=== PATIENT | female | born 1960 | race Caucasian/White ===

== ENCOUNTER 2023-11-08 05:47 | Inpatient (IN) | payer OTHER ==
[2023-11-08] MEDS ORDERED: ALPRAZolam 0.25 MG TAB PO PRN (06:14)
[2023-11-08] MEDS ORDERED: ZOLPIDEM 5 MG TAB PO PRN (06:14)
[2023-11-08 06:44] LABS: Glucose,Whole Blood 90 mg/dL (70-110)
[2023-11-08] MEDS: IV FLUID CONTINUATION 1,000 ML IV ONE (06:45)
[2023-11-08] MEDS: SODIUM CHLORIDE 0.9% 1,000 ML in EMPTY BAG 1 BAG IV ONE (06:45)
[2023-11-08 06:49] LABS: Basophils # (A) 0.1 k/uL (0-0.2); Basophils % (A) 1 %; Eosinophils # (A) 0.4 k/uL (0-0.7); Eosinophils % (A) 5 %; HCT 47.4 % (34.0-46.0); HGB 15.8 gm/dL (11.4-16.0); Lymphocytes # (A) 1.9 k/uL (1.0-4.8); Lymphocytes % (A) 22 %; MCH 30.6 pg (25.0-35.0); MCHC 33.4 g/dL (31.0-37.0); MCV 91.6 fL (80.0-100.0); Mean Platelet Volume 6.2; Monocytes # (A) 0.5 k/uL (0-1.0); Monocytes % (A) 6 %; Neutrophils # (A) 5.8 k/uL (1.3-7.7); Neutrophils % (A) 66 %; Platelet Count 449 k/uL (150-450); RBC 5.18 m/uL (3.80-5.40); RDW 12.9 % (11.5-15.5); WBC 8.8 k/uL (3.8-10.6)
[2023-11-08] MEDS ORDERED: HYDROmorphone 0.5 MG/0.5 ML SYRINGE IVP PRN (07:00)
[2023-11-08 07:01] LABS: African American GFR (CKD) >90 (>60 ml/min/1.73 sqM); Anion Gap 0 mmol/L; Blood Urea Nitrogen 10 mg/dL (7-17); Calcium 8.9 mg/dL (8.4-10.2); Carbon Dioxide 33 mmol/L (22-30); Chloride 96 mmol/L (98-107); Glucose 89 mg/dL (74-99); Non-African American GFR(CKD) >90 (>60 ml/min/1.73 sqM); Sodium 129 mmol/L (137-145)
[2023-11-08] MEDS ORDERED: ROCURONIUM 10 MG/ML (5 ML VIAL) IV ONE (07:37)
[2023-11-08] MEDS ORDERED: fentaNYL (PF) 50 MCG/ML 2 ML AMP ONE (07:37)
[2023-11-08] MEDS ORDERED: PROTAMINE SULFATE 10 MG/ML 5 ML VIAL ONE (07:37)
[2023-11-08] MEDS ORDERED: ceFAZolin 1 GM/50 ML BAG (PMX) ONE (07:37)
[2023-11-08] MEDS ORDERED: PROPOFOL 10 MG/ML 20 ML VIAL IV ONE (07:37)
[2023-11-08] MEDS ORDERED: LIDOCAINE 1% INJ 10MG/ML (20 ML MDV) ONE (07:37)
[2023-11-08] MEDS ORDERED: GLYCOPYRROLATE 0.2 MG/ML 2 ML VIAL ONE (07:37)
[2023-11-08] MEDS ORDERED: KETAMINE HCL IN 0.9 % NACL 50 MG/5 ML SYRINGE ONE (07:37)
[2023-11-08] MEDS ORDERED: NEOSTIGMINE 1 MG/ML 10 ML VIAL ONE (07:37)
[2023-11-08] MEDS ORDERED: MIDAZOLAM 2 MG/2 ML VIAL ONE (07:37)
[2023-11-08] MEDS ORDERED: SUCCINYLCHOLINE CHLORIDE 200 MG/10 ML VIAL IV ONE (07:37)
[2023-11-08] MEDS ORDERED: PHENYLEPHRINE 10 MG/ML VIAL ONE (07:37)
[2023-11-08] MEDS ORDERED: HEPARIN SODIUM,PORCINE 5,000 UNIT/ML 1 ML VIAL ONE (07:37)
[2023-11-08] MEDS: ALBUTEROL NEBULIZED 2.5 MG/3 ML INHALATION STA (07:40)
[2023-11-08] MEDS: IOPAMIDOL-370 100ML BTL INJ ONE ×2 (09:03→10:16)
[2023-11-08] MEDS: HEPARIN SODIUM,PORCINE (1 ML) 2,500 UNIT in SODIUM CHLORIDE 0.9% 250 ML IRRIGATION ONE (10:17)
[2023-11-08] MEDS: HEPARIN SODIUM,PORCINE 10,000 UNIT in SODIUM CHLORIDE 0.9% 1,000 ML IRRIGATION ONE (10:17)
--- NOTE | 2023-11-08 10:51 | P.OP ---
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 Postoperative Diagnosis: Same Right SFA occlusion at the takeoff Procedure(s) Performed: Ultrasound guided right femoral artery access Aortogram with selective left lower extremity angiogram 3rd order Percutaneous atherectomy with Hawk One 6M device of the SFA occlusion Percutaneous transluminal balloon angioplasty of the left SFA Ultrasound guided left common femoral artery access Percutaneous transluminal balloon angioplasty of the aorta with Shockwave 8mm x 30mm balloon Percutaneous transluminal cover stenting with 11mm x 39mm VBX Percutaneous closure of the left common femoral artery access with Vascade device Percutaneous closure of the right common femoral artery with Perclose x 1 Anesthesia: GETA Surgeon: Crispin Bliss Estimated Blood Loss (ml): 20 Pathology: none sent Condition: stable Disposition: PACU Indications for Procedure: 63 year old female with history of chronic left toe wound with previous angiog bill, CTA of the abdomen, pelvis and left lower extremity which demonstrated chronic total occlusion of the left SFA and distal aorta. She presents today for left lower extremity atherectomy, revascularization and aortic intervention possible AFX stenting. Operative Findings: distal aortic occlusive disease greater than 95% Left SFA chronic total occlusion with reconstitution at the distal SFA Right SFA occlusion at the takeoff with reconstitution at the mid thigh Small, diminutive vessels throughout. Description of Procedure: After written and informed consent was obtained the patient all risks, benefits and complications were described patient is brought to the Mechanical Cad Designer and laid supine position. The area of the right and left groin was prepped and draped in usual sterile fashion. Timeout was performed in normal fashion. Utilizing ultrasound the right femoral artery was accessed and a 6 F sheath was placed. Iliac and aortic angiogram was then obtained which demonstrated severe occlusive disease of the distal aorta but bifurcation was patent. 035 Glidewire was then placed into the aorta followed by an RBI catheter and the left iliac was accessed in an up and over fashion. Selective angiogram was then obtained of the left lower extremity demonstrating occlusion of the SFA at the mid thigh and reconstitution roughly 100mm distal. Patient was given heparin and followed with ACTs. An 035 Glidewire advantage was then placed in an up and over fashion and the 6 F short sheath was removed and replaced with an up and over 6F sheath. Selective angiogram was again obtained demonstrating occlusion/stenosis of the left SFA. Utilizing 035 Glidewire and quick cross catheter the lesion was crossed and selective angiogram distally was obtained demonstrating good intraluminal access. Once across a 5mm spider filter was placed and utilizing a 6M Hawk one atherectomy device directional atherectomy was performed with mult iple passes. Once completed angiogram was obtained demonstrating improvement of the stenotic area. Balloon angioplasty was then performed with a [id number]. Final angiogram demonstrated brisk flow with resolution of the occlusion. Attention was then placed to the aortic lesion. Using the crossing catheter and 035 wire the aortic lesion was crossed and aortogram was obtained demonstrating good intraluminal access. Ultrasound was then used to access the left femoral artery and a 7F sheath was placed in usual fashion in order to place the AFX graft. Using a crossing catheter the aortic lesion was crossed from the left access and aortogram was obtained demonstrating good intraluminal access. The wire was then changed for an 018 glidewire advantage and balloon angioplasty was performed with a Shockwave 8mm x 30mm balloon x 4 pulses. Once completed angiogram demonstrated improved lumen and good landing zone for within the aorta at the proximal and distal aspect. A VBX 11mm x 39mm stent was then chosen and deployed in usual fashion after the right common femoral sheath was upsized to an 8F sheath. Once completed all guidewires and catheters were then removed the sheath was removed on the left utilizing a Vascade closure device the access was closed. Final angiogram demonstrated brisk flow to the left lower extremity. A Perclose was then placed on the right and pressure was placed for hemostasis. Once completed the right femoral pulse was diminished and therefore ultrasound used to view the artery which demonstrated poor flow to the SFA. Due to the decrease flow the left femoral artery was accessed under ultrasound and a 5F sheath was placed in usual fashion and a wire was placed followed by the RBI catheter and an angiogram was performed of the right lower extremity. The common femoral artery and profunda were patent without any stenosis but the SFA was occluded distal to the access which appeared chronic with reconstitution noted at the mid thigh. There was 2 vessel takeoff at the TPT with runoff to the ankle. All guidewires, catheter and sheath was removed and pressure held for hemostasis. The patient tolerated the procedure well and had palpable femo ral pulses bilaterally pulses and DP/PT pulses on the left and was sent to recovery.
--- NOTE | 2023-11-08 11:03 | P.ANPRN ---
Procedure Note - Anesthesia - Invasive Line Left Arterial Line Time Out Performed: Yes (0721) Date of Procedure: 11/08/23 Time of Procedure: 07:22 Location of Patient: PreOp Preparation: Sterile Prep, Sterile Dressing Arterial Line Location: Radial (left) Ultrasound Used: No Purpose - Visualization and Identification of Vasculature: No Image Stored and Saved: No Narrative: Invasive line placement per sterile protocol utilized.
[2023-11-08] MEDS ORDERED: DEXTROSE 50% SYRINGE 50 ML IVP PRN ×2 (11:21)
[2023-11-08] MEDS ORDERED: ACETAMINOPHEN TAB 325 MG TAB PO PRN (11:24)
[2023-11-08] MEDS ORDERED: ONDANSETRON 4 MG/2 ML VIAL IVP PRN (11:24)
[2023-11-08] MEDS: ONDANSETRON 4 MG/2 ML VIAL IVP ONE (12:58)
[2023-11-08] MEDS: DEXAMETHASONE SOD PHOSPHATE 4 MG/ML 1 ML VIAL IV ONE (12:58)
[2023-11-08] MEDS: LACTATED RINGERS 1,000 ML IV SCH (13:00)
[2023-11-08] MEDS: INSULIN ASPART (NovoLOG) 100 UNIT/ML VIAL SQ SCH (13:01)
[2023-11-08] MEDS: PANTOPRAZOLE 40 MG/10 ML VIAL IVP SCH (13:03)
[2023-11-08 13:07] LABS: Glucose,Whole Blood 93 mg/dL (70-110)
--- NOTE | 2023-11-08 13:07 | IR ---
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 Fluoroscopy was provided to the referring clinician. [facility], , 11/08/2023 1:04 PM
[2023-11-08] MEDS: amLODIPine 10 MG TAB PO SCH (13:13)
[2023-11-08] MEDS ORDERED: hydrALAZINE HCL 20 MG/ML 1 ML VIAL IVP PRN (13:29)
--- NOTE | 2023-11-08 14:49 | P.PN ---
Progress Note - Text Progress Note Date: 11/08/23 This is a 63-year-old female on day of percutaneous revascularization of the left lower extremity. Was doing a postop check when the nurse had concerns that the patient's right foot was cool to the touch compared to the lef and she is unable to obtain a DP or PT signal. Patient is evaluated she denies any pain to the right lower extremity, her sensorimotor is intact with good movement and flexing of the ankle and wiggling of the toes. Bilateral femoral access sites with dressing clean dry and intact. No palpable hematoma or noted ecchymosis. Right foot cool to the touch, adequate capillary refill, nonpalpable PT or DP pulse. Was able to obtain PT Doppler signal. Left lower extremity warm to the touch, palpable PT and DP pulse. Findings discussed with Dr. Bliss. Will start patient on heparin drip without bolus. Continue to monitor femoral access sites. Nursing notified. The impression and plan of care has been dictated as directed. Dr. Fan: Patient seen and examined during postoperative check later in the evening. Her left foot is warm, palpable pedal pulses. Right lower extremity mildly cooler. Motor or sensory intact. Given clinical appearance at this time likely all chronic findings now with improvement of flow to the left side. Doubt acute changes in right lower extremity. Will continue to monitor for need for further interventions however at this time no indication.
[2023-11-08] MEDS: HEPARIN SOD,PORK IN 0.45% NACL 25,000 UNIT in 0.45% NACL 1 250ML.BAG IV SCH (15:31)
[2023-11-08 15:41] LABS: Basophils % (A) 0 %; Eosinophils # (A) 0.3 k/uL (0-0.7); Eosinophils % (A) 2 %; HCT 46.2 % (34.0-46.0); HGB 14.9 gm/dL (11.4-16.0); Lymphocytes # (A) 1.7 k/uL (1.0-4.8); Lymphocytes % (A) 16 %; MCH 29.9 pg (25.0-35.0); MCHC 32.3 g/dL (31.0-37.0); MCV 92.6 fL (80.0-100.0); Mean Platelet Volume 6.4; Monocytes # (A) 0.6 k/uL (0-1.0); Monocytes % (A) 5 %; Neutrophils % (A) 75 %; Platelet Count 349 k/uL (150-450); RBC 4.99 m/uL (3.80-5.40); WBC 10.6 k/uL (3.8-10.6)
[2023-11-08 16:38] LABS: INR 0.9 (<1.2); Partial Thromboplastin Time 24.9 sec (22.0-30.0); Prothrombin Time 10.5 sec (10.0-12.5)
[2023-11-08 16:48] LABS: Glucose,Whole Blood 95 mg/dL (70-110)
[2023-11-08] MEDS: LOSARTAN 50 MG TAB PO SCH (20:07)
[2023-11-08 20:16] LABS: Glucose,Whole Blood 192 mg/dL (70-110)
[2023-11-08] MEDS ORDERED: amLODIPine 10 MG TAB PO SCH (21:00)
[2023-11-08] MEDS ORDERED: HEPARIN SODIUM,PORCINE 5,000 UNIT/ML 1 ML VIAL SQ SCH (21:00)
[2023-11-08] MEDS: HEPARIN SODIUM 1,000 UN/ML (10ML VL) IV PRN (22:12)
[2023-11-09 06:20] LABS: Glucose,Whole Blood 167 mg/dL (70-110)
[2023-11-09 07:51] LABS: Basophils % (A) 0 %; Eosinophils # (A) 0.4 k/uL (0-0.7); Eosinophils % (A) 3 %; HCT 41.4 % (34.0-46.0); HGB 13.8 gm/dL (11.4-16.0); Lymphocytes # (A) 1.7 k/uL (1.0-4.8); Lymphocytes % (A) 15 %; MCH 30.5 pg (25.0-35.0); MCHC 33.2 g/dL (31.0-37.0); MCV 91.9 fL (80.0-100.0); Mean Platelet Volume 7.2; Monocytes # (A) 0.5 k/uL (0-1.0); Monocytes % (A) 5 %; Neutrophils % (A) 76 %; Platelet Count 355 k/uL (150-450); RBC 4.51 m/uL (3.80-5.40); RDW 12.9 % (11.5-15.5); WBC 11.8 k/uL (3.8-10.6)
[2023-11-09] MEDS: DULoxetine HCL 30 MG CAPSULE.DR PO SCH (08:19)
[2023-11-09] MEDS: CLOPIDOGREL 75 MG TAB PO SCH (08:19)
[2023-11-09] MEDS: ASPIRIN 81 MG PO SCH (08:19)
[2023-11-09] MEDS: NICOTINE 14MG/24HR PATCH TRANSDERM SCH (08:20)
[2023-11-09 09:12] VITALS: RESP 20
--- NOTE | 2023-11-09 09:46 | P.DS ---
Providers Date of admission: 11/08/23 05:47 Expected date of discharge: 11/09/23 Attending physician: Crispin Bliss DO Consults: 11/08/23 06:14 Consult to Anesthesia Routine Consulting Provider: Anesthesia,Services Consult Reason/Comments: General anesthesia for Aortic Stent procedure 11/08/23 10:52 Consult Physician Routine Consulting Provider: Willie Sandhu Consult Reason/Comments: Medical Management Do you want consulting provider notified?: Yes Primary care physician: Juan Ingram Eleanor Slater Hospital Course: 63-year-old female history of chronic left toe wound with previous angiogram, CTA of the abdomen and pelvis and lower extremity which demonstrated chronic total occlusion of the left SFA and distal aorta. She is postop day #1 for percutaneous atherectomy of SFA occlusion, transluminal balloon angioplasty of the left SFA, percutaneous transluminal balloon angioplasty of the aorta with percutaneous transluminal stenting. Yesterday afternoon following her procedure it was noticed that her right foot had been cool to the touch and unable to get Doppler signal. PT signal was obtained she was started on a heparin drip. No pain in the right lower extremity, sensorimotor intact. Reevaluated today the right foot is warm, faint DP and PT signal obtained. Denies any pain to the right or left lower extremity. She has been up ambulating in her room and voiding without difficulty. No shortness of breath, chest pain, abdominal pain, nausea or vomiting. Tolerating her breakfast. Exam General appearance: The patient is alert, oriented, appears in no acute distress. HET: Head is normocephalic and atraumatic. Pupils are equal and reactive. Neck: Supple. Heart: Regular. Lungs: Equal expansion, normal respiratory effort. Abdomen: Soft, nontender, nondistended. Extremities: Normal skin color and turgor. Bilateral groins access site with dressing clean dry and intact, soft with no evidence of hematoma, minimal bruising. Palpable femoral pulses. Bilateral lower extremities warm to the touch. Left palpable PT and DP pulse. Right with faint PT and DP Doppler signal. Sensorimotor intact bilaterally. Neurological: No focal deficits. Strength and sensation are grossly intact. Assessment 1. Postop day #1 for aortogram with selective left lower extremity angiogram with percutaneous atherectomy of SFA occlusion, transluminal balloon angioplasty of left SFA, balloon angioplasty of aorta with stent. 2. Left SFA chronic total occlusion, resolved 3. Critical limb ischemia with chronic left toe wound 4. Distal aortic occlusive disease 5. Right SFA occlusion at the takeoff 6. Nicotine dependence Plan 1. Encourage ambulation 2. Will discontinue heparin drip and start Xarelto 2.5 mg twice daily 3. Continue Plavix 75 mg daily, discontinue aspirin 4. Recommend smoking cessation. Continue nicotine patches 5. Discharge instructions and medications reviewed with patient, patient verbalizes understanding 6. Patient to follow-up with Dr. Bartlett for left great toe wound care 7. Patient is cleared for discharge, follow-up with Dr. Bliss in 2 weeks The impression and plan of care has been dictated as directed. I performed a history and examination of this patient, discussed the same with the dictator. I agree with the dictator's note ,documented as a scribe. Any additional findings or plans will be noted. Procedures: Procedure(s) Performed: Ultrasound guided right femoral artery access Aortogram with selective left lower extremity angiogram 3rd order Percutaneous atherectomy with Hawk One 6M device of the SFA occlusion Percutaneous transluminal balloon angioplasty of the left SFA Ultrasound guided left common femoral artery access Percutaneous transluminal balloon angioplasty of the aorta with Shockwave 8mm x 30mm balloon Percutaneous transluminal cover stenting with 11mm x 39mm VBX Percutaneous closure of the left common femoral artery access with Vascade device Percutaneous closure of the right common femoral artery with Perclose x 1 Patient Condition at Discharge: Stable Plan - Discharge Summary Discharge Rx Participant: No New Discharge Prescriptions: New Clopidogrel [Plavix] 75 mg PO DAILY #30 tab Acetaminophen Tab [Tylenol] 650 mg PO Q6HR PRN tab PRN Reason: Fever And/ Or Pain Nicotine 14Mg/24Hr Patch [Habitrol] 1 patch TRANSDERM DAILY #30 patch Rivaroxaban [Xarelto] 2.5 mg PO BID #60 tab Continue Atorvastatin [Lipitor] 20 mg PO QAM Gabapentin [Neurontin] 100 mg PO TID INSULIN LISPRO (humaLOG) [humaLOG] 0 units SQ ACHS Magnesium (Unknown Dose) 400 mg PO QAM Vitamin D(Unknown Dose) 1 dose PO QAM Famotidine 20 mg PO 1600 amLODIPine [Norvasc] 10 mg PO BID Losartan [Cozaar] 100 mg PO HS metFORMIN HCL [Glucophage] 1,000 mg PO BID DULoxetine HCL [Cymbalta] 30 mg PO QAM Augmentin(Unknown Dose) 1 dose PO BID Discontinued Aspirin EC [Ecotrin Low Dose] 81 mg PO QAM Discharge Medication List Atorvastatin [Lipitor] 20 mg PO QAM 11/02/23 [History] Augmentin(Unknown Dose) 1 dose PO BID 11/02/23 [History] DULoxetine HCL [Cymbalta] 30 mg PO QAM 11/02/23 [History] Famotidine 20 mg PO 1600 11/02/23 [History] Gabapentin [Neurontin] 100 mg PO TID 11/02/23 [History] INSULIN LISPRO (humaLOG) [humaLOG] 0 units SQ ACHS 11/02/23 [History] Losartan [Cozaar] 100 mg PO HS 11/02/23 [History] Magnesium (Unknown Dose) 400 mg PO QAM 11/02/23 [History] Vitamin D(Unknown Dose) 1 dose PO QAM 11/02/23 [History] amLODIPine [Norvasc] 10 mg PO BID 11/02/23 [History] metFORMIN HCL [Glucophage] 1,000 mg PO BID 11/02/23 [History] Acetaminophen Tab [Tylenol] 650 mg PO Q6HR PRN tab 11/09/23 [Rx] Clopidogrel [Plavix] 75 mg PO DAILY #30 tab 11/09/23 [Rx] Nicotine 14Mg/24Hr Patch [Habitrol] 1 patch TRANSDERM DAILY #30 patch 11/09/23 [Rx] Rivaroxaban [Xarelto] 2.5 mg PO BID #60 tab 11/09/23 [Rx] Follow up Appointment(s)/Referral(s): Crispin Bliss DO [STAFF PHYSICIAN] - 2 Weeks Patient Instructions/Handouts: Atherectomy (DC), Peripheral Vascular Angioplasty (DC), Peripheral Vascular Stent Placement (DC), Clopidogrel (By mouth), Rivaroxaban (By mouth) Activity/Diet/Wound Care/Special Instructions: No driving for two days. Avoid heavy lifting greater than 10 lbs , pushing, pulling, straining, flights of stairs for three days. ok to shower tomorrow but no baths, pools, soaking in tubs to avoid risk of infection. signs of infection ie: fever, rash, drainage from puncture site, swelling contact doctor or return to ER immediately. Heavy bleeding from puncture site apply firm direct pressure and return to ER. Do not attempt to drive self. low sodium/low fat diet Recommend smoking cessation. Nicotine patches prescribed. Discharge Disposition: HOME SELF-CARE
[2023-11-09 10:08] LABS: African American GFR (CKD) >90 (>60 ml/min/1.73 sqM); Anion Gap 2 mmol/L; Blood Urea Nitrogen 5 mg/dL (7-17); Calcium 8.7 mg/dL (8.4-10.2); Carbon Dioxide 25 mmol/L (22-30); Chloride 105 mmol/L (98-107); Glucose 144 mg/dL (74-99); Non-African American GFR(CKD) >90 (>60 ml/min/1.73 sqM); Sodium 132 mmol/L (137-145)
[2023-11-09] MEDS: RIVAROXABAN 2.5 MG TABLET PO SCH (10:28)
[2023-11-09 11:23] LABS: Glucose,Whole Blood 185 mg/dL (70-110)
[2023-11-09 11:48] VITALS: BP 132/69; PULSE 78; TEMP 98.4
--- NOTE | 2023-11-09 13:07 | P.PN ---
Subjective Progress Note Date: 11/09/23 Is a 63-year-old female who underwent angiogram and repair of occluded left SFA secondary to critical limb ischemia of the left leg. Patient has been started on Xarelto and will continue this on discharge. She is evaluated today postoperative day #1 she is not having much pain to her left leg has been up ambulating without difficulty. No acute events overnight. Today reveals a white blood cell count of 11.8, sodium level of 132, BUN of 5, creatinine of 0.40, hemoglobin A1c of 6.7. Hemodynamically she is stable and she is cleared medically for discharge home. Review of Systems Constitutional: Denied any fatigue denied any fever. Cardio vascular: denied any chest pain, palpitations Gastrointestinal: denied any nausea, vomiting, diarrhea Pulmonary: Denied any shortness of breath cough Neurologic denied any new focal deficits All inpatient medications were reviewed and appropriate changes in these medications as dictated in the interval history and assessment and plan. PHYSICAL EXAMINATION: GENERAL: The patient is alert and oriented x3, not in any acute distress. Well developed, well nourished. HEENT: Pupils are round and equally reacting to light. EOMI. No scleral icterus. No conjunctival pallor. Normocephalic, atraumatic. No pharyngeal erythema. No thyromegaly. CARDIOVASCULAR: S1 and S2 present. No murmurs, rubs, or gallops. PULMONARY: Chest is clear to auscultation, no wheezing or crackles. ABDOMEN: Soft, nontender, nondistended, normoactive bowel sounds. No palpable o rganomegaly. MUSCULOSKELETAL: No joint swelling or deformity. EXTREMITIES: No cyanosis, clubbing, or pedal edema. NEUROLOGICAL: Gross neurological examination did not reveal any focal deficits. SKIN: No rashes. Assessment and plan Critical limb ischemia and left chronic SFA occlusion; now postoperative left SFA percutaneous arthrectomy; transluminal balloon angioplasty of left SFA and balloon agioplasty of aorta with stent. Right SFA occlusion at take off Diabetes Mellitus type 2 Hypertension Hyperlipidemia Bronchitis recently treated with augmentin outpatient basis Chronic nicotine dependence Hyponatremia hypovolemic improved with IV fluids. Patient was recently ill with decreased oral intake during that time. GI prophylaxis DVT prophylaxis Full Code Plan Patient will discharge on Plavix and Xarelto therapy for the critical limb ischemia, occlusion and stenting Aspirin 81 mg daily has been discontinued Patient is counseled on the importance of smoking cessation Continue all other same home medications Follow up with Dr Bliss in the office as recommended Follow up with PCP Dr Juan Mandujano Repeat labs in 2 to 3 days monitor sodium level. Medically stable for DC home The impression and plan of care has been dictated by Destiny Gomes, Nurse Practitioner as directed. Dr. Abdon MD I have performed a history and physical examination and medical decision making of this patient, discussed the same with the dictator, and agree with the dictators assessment and plan as written, documented as a scribe. Based on total visit time, I have performed more than 50% of this visit. Objective - Vital Signs Vital signs: Vital Signs Temp 98.1 F 11/09/23 08:00 Pulse 83 11/09/23 08:00 Resp 20 11/09/23 08:00 BP 158/67 11/09/23 08:00 Pulse Ox 96 11/09/23 08:00 FiO2 Intake & Output 11/08/23 11/09/23 11/09/23 18:59 06:59 18:59 Intake Total 1178.72 764.721 180 Output Total 3300 900 Balance 1178.72 -2535.279 -720 Weight 55.1 kg Intake: IV 500 Intake, IV Titration 438.72 64.721 Amount Heparin Sod,Pork in 0.45% 38.72 64.721 NaCl 25,000 unit In 0.45 % NaCl 1 250ml.bag @ 18 UNITS/KG/HR 9.684 mls/hr IV .Q24H SHERRELL Rx#: [id number] Lactated Ringers 1,000 ml 400 @ 50 mls/hr IV .Q20H SHERRELL Rx#:[id number] Oral 240 700 180 Output: Urine 3300 900 Other: Voiding Method Indwelling Catheter Indwelling Catheter - Labs CBC & Chem 7: 11/09/23 07:19 11/09/23 07:19 Labs: Abnormal Lab Results - Last 24 Hours (Table) 11/08/23 11/08/23 11/08/23 Range/Units 03:34 06:30 20:14 WBC (3.8-10.6) k/uL Hct 46.2 H 47.4 H (34.0-46.0) % Neutrophils # 8.0 H (1.3-7.7) k/uL APTT (22.0-30.0) sec POC Glucose (mg/dL) 192 H (70-110) mg/dL 11/08/23 11/09/23 11/09/23 Range/Units 21:32 06:18 07:19 WBC 11.8 H (3.8-10.6) k/uL Hct (34.0-46.0) % Neutrophils # 9.0 H (1.3-7.7) k/uL APTT 35.7 H (22.0-30.0) sec POC Glucose (mg/dL) 167 H (70-110) mg/dL 11/09/23 Range/Units 07:19 WBC (3.8-10.6) k/uL Hct (34.0-46.0) % Neutrophils # (1.3-7.7) k/uL APTT 45.6 H (22.0-30.0) sec POC Glucose (mg/dL) (70-110) mg/dL Assessment and Plan Time with Patient: Less than 30
[2023-11-09 14:45] VITALS: BMI 20.8
--- NOTE | 2023-11-09 14:50 | CONS ---
CONSULTATION REASON FOR CONSULTATION: Advice regarding diabetes mellitus, hypertension, other medical issues, requested by Surgery. HISTORY OF PRESENT ILLNESS: This is a 63-year-old woman with a past medical history of diabetes mellitus, hypertension, hyperlipidemia, underwent percutaneous atherectomy and as well as left SFA angioplasty. There is no history of any fever, rigors, or chills. No history of headache, loss of consciousness, or seizures. PAST MEDICAL HISTORY: History of diabetes mellitus, hypertension, hyperlipidemia. Rest of the history and rest of the chart is also reviewed. HOME MEDICATIONS: Reviewed include insulin. ALLERGIES: None. FAMILY HISTORY: Uterine cancer. SOCIAL HISTORY: Smoking. REVIEW OF SYSTEMS: Fourteen-point review is negative except as mentioned PHYSICAL EXAMINATION: VITAL SIGNS: Pulse is 64, blood pressure 156/61, respirations 14. HEENT: Conjunctivae normal. NECK: No JVD. CARDIOVASCULAR: S1, S2. RESPIRATIONS: Breath sounds diminished at the bases. ABDOMEN: Soft, nontender. LEGS: Status post surgery. NERVOUS SYSTEM: Nonfocal. LABORATORY DATA: Sodium 139. Rest of the labs are noted. ASSESSMENT: 1. Status post balloon angioplasty of the left SFA for chronic left SFA occlusion. 2. Hyponatremia. 3. Diabetes mellitus, type 2. 4. Hypertension. 5. Hyperlipidemia. RECOMMENDATIONS AND DISCUSSION: This is a 63-year-old woman, who presented with multiple complex medical issues, we will monitor the patient closely on the home medications. Monitor blood pressure closely, IV fluids and I would also recommend to monitor blood sugars closely and we will follow the patient closely. DVT prophylaxis. Smoking cessation. Further recommendations to follow. MMODL / IJN: [id number] /
[2023-11-09] MEDS ORDERED: PANTOPRAZOLE 40 MG TABLET PO SCH (21:00)
== END 2023-11-09 15:17 | disposition home or self-care (01) | DRG 182 ==
LOC: 2ORMAIN 05:47 → 3SCARD 09:53
PROVIDERS: ADMIT Surgery; ATTEND Surgery
PROC: 04CL3ZZ Extirpation of Matter from Left Femoral Artery, Percutaneous Approach (ICD-10-PCS; 2023-11-08)
PROC: 047K34Z Dilation of Right Femoral Artery with Drug-eluting Intraluminal Device, Percutaneous Approach (ICD-10-PCS; 2023-11-08)
PROC: 04703ZZ Dilation of Abdominal Aorta, Percutaneous Approach (ICD-10-PCS; principal; 2023-11-08 07:30)
PROC: B41D1ZZ Fluoroscopy of Aorta and Bilateral Lower Extremity Arteries using Low Osmolar Contrast (ICD-10-PCS; 2023-11-08 07:30)
DX: I70.0 Atherosclerosis of aorta (principal); I70.223 Atherosclerosis of native arteries of extremities with rest pain, bilateral legs; I70.92 Chronic total occlusion of artery of the extremities; E11.51 Type 2 diabetes mellitus with diabetic peripheral angiopathy without gangrene; Z79.4 Long term (current) use of insulin; E87.1 Hypo-osmolality and hyponatremia; I10 Essential (primary) hypertension; F17.210 Nicotine dependence, cigarettes, uncomplicated; E78.5 Hyperlipidemia, unspecified; E86.1 Hypovolemia; Z79.84 Long term (current) use of oral hypoglycemic drugs; Z79.899 Other long term (current) drug therapy
CPT/HCPCS: 37225; 80048; 83036; 85025; 85610; 85730; 86850; 86900; 86901; 94640

== ENCOUNTER 2024-04-19 06:59 | Day surgery (SDC) | payer OTHER ==
[2024-04-17 12:53] VITALS: BMI 20.4
[~2024-04-19 06:59] MED LIST: DEXAMETHASONE SOD PHOSPHATE 4 MG/ML 1 ML VIAL IV ONE; ONDANSETRON 4 MG/2 ML VIAL IVP ONE; SCOPOLAMINE 1 MG/72 HR PATCH TRANSDERM ONE
[2024-04-19] MEDS ORDERED: HYDROmorphone 0.5 MG/0.5 ML SYRINGE IVP PRN (07:00)
[2024-04-19] MEDS ORDERED: MIDAZOLAM 2 MG/2 ML VIAL IV PRN (07:00)
[2024-04-19 07:31] LABS: Glucose,Whole Blood 104 mg/dL (70-110)
[2024-04-19] MEDS: LACTATED RINGERS 1,000 ML IV SCH (07:31)
[2024-04-19 07:36] LABS: Basophils # (A) 0.1 k/uL (0-0.2); Basophils % (A) 0 %; Eosinophils # (A) 0.3 k/uL (0-0.7); Eosinophils % (A) 3 %; HCT 32.9 % (34.0-46.0); HGB 10.3 gm/dL (11.4-16.0); Lymphocytes # (A) 1.6 k/uL (1.0-4.8); Lymphocytes % (A) 15 %; MCH 28.4 pg (25.0-35.0); MCHC 31.3 g/dL (31.0-37.0); MCV 90.8 fL (80.0-100.0); Mean Platelet Volume 6.9; Monocytes # (A) 0.8 k/uL (0-1.0); Monocytes % (A) 8 %; Neutrophils # (A) 8.1 k/uL (1.3-7.7); Neutrophils % (A) 73 %; Platelet Count 387 k/uL (150-450); RBC 3.63 m/uL (3.80-5.40); RDW 15.1 % (11.5-15.5)
[2024-04-19 07:41] VITALS: RESP 16; TEMP 97.6
[2024-04-19] MEDS: EMPTY BAG 1 BAG with SODIUM CHLORIDE 0.9% 1,000 ML IV ONE (07:42)
[2024-04-19 08:00] LABS: African American GFR (CKD) >90 (>60 ml/min/1.73 sqM); Anion Gap 7 mmol/L; Blood Urea Nitrogen 24 mg/dL (7-17); Calcium 9.1 mg/dL (8.4-10.2); Carbon Dioxide 28 mmol/L (22-30); Chloride 98 mmol/L (98-107); Glucose 101 mg/dL (74-99); Non-African American GFR(CKD) >90 (>60 ml/min/1.73 sqM); Potassium 4.8 mmol/L (3.5-5.1); Sodium 133 mmol/L (137-145)
[2024-04-19] MEDS: IV FLUID CONTINUATION 1,000 ML IV ONE (08:00)
[2024-04-19] MEDS: fentaNYL (PF) 50 MCG/1 ML VIAL IVP ONE (08:15)
[2024-04-19] MEDS: MIDAZOLAM 2 MG/2 ML VIAL IVP ONE (08:15)
[2024-04-19] MEDS: LIDOCAINE 1% INJ 10MG/ML (5 ML VIAL-PF) SQ ONE (08:20)
[2024-04-19] MEDS: IOPAMIDOL-370 100ML BTL INJ ONE (08:30)
[2024-04-19] MEDS: HEPARIN SODIUM,PORCINE 10,000 UNIT in SODIUM CHLORIDE 0.9% 1,000 ML IRRIGATION ONE (08:44)
--- NOTE | 2024-04-19 08:55 | P.OP ---
Date of Procedure: 04/19/24 Preoperative Diagnosis: Peripheral arterial disease with rest pain right lower extremity [place] classification 4 Postoperative Diagnosis: Same Right SFA occlusion with reconstitution 3 cm distal to the takeoff Three-vessel takeoff below knee with one-vessel runoff to the foot Procedure(s) Performed: Ultrasound-guided left common femoral artery access Aortogram with selective right lower extremity runoff second order Percutaneous closure of the left common femoral artery with Vascade Conscious sedation x 28 minutes Anesthesia: local Surgeon: Crispin Bliss Estimated Blood Loss (ml): 5 Pathology: none sent Condition: stable Disposition: PACU Indications for Procedure: 64-year-old female with history of aortic occlusive disease with previous aortic stenting as well as revascularization of her left lower extremity presents to the office secondary to worsening blood flow to the right lower extremity as well as claudication and rest pain presents for aortogram and right lower extremity angiogram with possible revascularization. BETTE measured 0.2 on the right Operative Findings: Complete total occlusion of the right superficial femoral artery at the takeoff. Occlusion length roughly 3 cm with reconstitution and good flow distally with t hree-vessel runoff to the midportion of the calf and one-vessel runoff to the foot posterior tibial artery Description of Procedure: After written informed consent was obtained the patient all risks benefits competitions were described the patient is brought to the Slp Teacher and laid in a supine position. The area of the left groin was prepped and draped in the usual sterile fashion. Local anesthesia with moderate sedation was performed with continuous pulse ox monitoring and EKG monitoring. Utilizing ultrasound the left common femoral artery was visualized and shown to be patent without any significant plaque. Utilizing a multipurpose needle under ultrasound guidance the artery was accessed. Guidewire was placed followed by 5 Vietnamese sheath. 035 Glidewire was then placed into the aorta followed by RBI catheter. Angiogram was then obtained of the aorta. Catheter was then placed up and over into the common iliac artery and right lower extremity runoff was obtained. Multiple angles and angiograms were obtained of the common femoral artery and superficial femoral artery takeoff to see if there was any takeoff of the superficial femoral artery which appeared to be completely occluded. 035 Glidewire was then attempted to cross this area which was unsuccessful. Due to the flush occlusion and inability to cross with a wire decision was made to stop the procedure and schedule her for endarterectomy of the distal common femoral artery and superficial femoral artery with patch angioplasty. Once completed all guidewires, catheters and sheaths were removed and pressure was placed for hemostasis. Patient tolerated procedure well was sent to PACU for recovery
[2024-04-19] MEDS: LOSARTAN 50 MG TAB PO STA (10:21)
[2024-04-19] MEDS: amLODIPine 10 MG TAB PO STA (10:21)
--- NOTE | 2024-04-19 11:46 | IR ---
EXAMINATION TYPE: IR angio abdominal w runoff Intraoperative/procedural fluoroscopic services were pr ovided. CLINICAL INDICATION:Female, 64 years old with history of 5.8MIN FLUORO TIME, RIGHT LEFT VASCULAR; , P HH FINDINGS: Total fluoroscopy time is 5.8 min. DAP: 36.8 Gycm2 Please see the operative/procedural note for further details. [facility], , 04/19/2024 11:43 AM
[2024-04-19 14:22] VITALS: BP 139/69; PULSE 80
== END 2024-04-19 13:07 | disposition home or self-care (01) ==
LOC: CATHCVL 06:59
PROVIDERS: ATTEND Surgery
DX: I70.221 Atherosclerosis of native arteries of extremities with rest pain, right leg (principal); I10 Essential (primary) hypertension; E11.40 Type 2 diabetes mellitus with diabetic neuropathy, unspecified; Z79.01 Long term (current) use of anticoagulants; Z79.84 Long term (current) use of oral hypoglycemic drugs; Z79.4 Long term (current) use of insulin; Z79.02 Long term (current) use of antithrombotics/antiplatelets; Z87.891 Personal history of nicotine dependence; I35.0 Nonrheumatic aortic (valve) stenosis
CPT/HCPCS: 36246; 75625; 75710; 76937; 80048; 85025; J2250; J1644; J2003; Q9967; J3010

== ENCOUNTER 2024-05-13 10:03 | Inpatient (IN) | payer OTHER ==
[2024-05-13] MEDS: DEXAMETHASONE SOD PHOSPHATE 4 MG/ML 1 ML VIAL IV ONE (10:52)
[2024-05-13] MEDS: ONDANSETRON 4 MG/2 ML VIAL IVP ONE (10:52)
[2024-05-13] MEDS: LACTATED RINGERS 1,000 ML IV SCH (10:52)
[2024-05-13 10:54] LABS: Glucose,Whole Blood 135 mg/dL (70-110)
[2024-05-13] MEDS: IV FLUID CONTINUATION 1,000 ML IV ONE ×2 (10:57→10:58)
[2024-05-13] MEDS: MIDAZOLAM 2 MG/2 ML VIAL IV ONE (11:03)
[2024-05-13] MEDS ORDERED: SUCCINYLCHOLINE CHLORIDE 200 MG/10 ML VIAL IV ONE (11:08)
[2024-05-13] MEDS ORDERED: NEOSTIGMINE 1 MG/ML 10 ML VIAL ONE (11:08)
[2024-05-13] MEDS ORDERED: ROCURONIUM 10 MG/ML (5 ML VIAL) IV ONE (11:08)
[2024-05-13] MEDS ORDERED: PROPOFOL 10 MG/ML 20 ML VIAL IV ONE (11:08)
[2024-05-13] MEDS ORDERED: GLYCOPYRROLATE 0.2 MG/ML 2 ML VIAL ONE (11:08)
[2024-05-13] MEDS ORDERED: fentaNYL (PF) 50 MCG/ML 2 ML AMP ONE (11:08)
[2024-05-13] MEDS ORDERED: HEPARIN SODIUM,PORCINE 10,000 UNIT/ML 1 ML VIAL ONE (11:08)
[2024-05-13] MEDS ORDERED: PHENYLEPHRINE 10 MG/ML VIAL ONE (11:08)
[2024-05-13] MEDS ORDERED: HYDROmorphone (PF) 1 MG/ML ONE (11:08)
[2024-05-13] MEDS ORDERED: LIDOCAINE 1% INJ 10MG/ML (20 ML MDV) ONE (11:08)
[2024-05-13] MEDS: HEPARIN SODIUM (1,000 UNIT/ML) 2,000 UNIT in SODIUM CHLORIDE 0.9% 1,000 ML IRRIGATION ONE (11:36)
[2024-05-13] MEDS: ceFAZolin 2 GM in SODIUM CHLORIDE 0.9% 500 ML 500 ML IRRIGATION ONE (11:36)
[2024-05-13] MEDS: THROMBIN (BOVINE) 5,000 UNIT VIAL MISCELLANE ONE (12:47)
[2024-05-13] MEDS ORDERED: MORPHINE SULFATE 2 MG/ML SYRINGE IVP PRN (13:07)
--- NOTE | 2024-05-13 13:07 | P.OP ---
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 On imaging she was found to have right SFA occlusion at the takeoff with reconstitution roughly 1 to 2 cm distal. She had disease extending into the common femoral as well and therefore recommendation was for femoral artery endarterectomy. She presents today for such procedure. Operative Findings: Dense plaque extending into the proximal aspect of the common femoral artery and into the superficial femoral and profundus femoris arteries. Description of Procedure: After written and informed consent was obtained from the patient all risks benefits and complications were described the patient is brought to the operative suite and laid in a supine position. The area of the abdomen, right lower extremity was prepped and draped in usual sterile fashion after appr opriate anesthetic was performed per the anesthesiologist. A timeout was performed in normal fashion. Antibiotics were administered prior to incision. A oblique incision was created at the right groin and dissection was carried down to the common femoral artery. The common femoral, superficial femoral and profundus femoris arteries were dissected free in a circumferential manner and controlled with vessel loops. Patient was then administered heparin and followed with serial ACT's. Once ACT was above 250 proximal and distal control was performed with vascular clamps. Arteriotomy was created from the proximal aspect of the SFA and extending it to the proximal aspect of the common femoral artery. Dense calcific disease was noted. Endarterectomy was then performed from the SFA extending to the common femoral with eversion technique for the profundus femoris. Backbleeding was assessed and was brisk from the SFA as well as the profundus femoris artery. Inflow was assessed and demonstrated good pulsatility. All free debris was removed and SFA plaque was tacked in normal fashion with 7-0 Prolene suture. Patch angioplasty was then performed with 6-0 Prolene suture in a running fashion. Once completed control was released revealing good pulsatile blood flow within the patch as well as in the profunda and SFA. Good Doppler multiphasic signal was noted in the common femoral, profundus femoris and SFA at the conclusion of the procedure. The area was copiously irrigated hemostasis was assured with Gelfoam and thrombin. The incision was then closed in a multilayer fashion. Skin was cleansed and dressed with a Prevena skin VAC. Patient tolerated procedure well with multiphasic signal at the DP and PT at the conclusion of the procedure. Patient was then sent to PACU for recovery.
[2024-05-13] MEDS: HYDROmorphone 0.5 MG/0.5 ML SYRINGE IVP PRN (13:41)
[2024-05-13 14:05] LABS: Glucose,Whole Blood 182 mg/dL (70-110)
[2024-05-13] MEDS: GABAPENTIN 100 MG CAP PO SCH (17:34)
[2024-05-13] MEDS: CLOPIDOGREL 75 MG TAB PO SCH (17:34)
[2024-05-13] MEDS: amLODIPine 10 MG TAB PO SCH (20:03)
[2024-05-13] MEDS: ASPIRIN 81 MG PO SCH (20:03)
[2024-05-13] MEDS: HYDROcodone/APAP 5-325MG 1 EACH TAB PO PRN (20:04)
[2024-05-13] MEDS: LOSARTAN 50 MG TAB PO SCH (20:04)
[2024-05-13 20:06] LABS: Glucose,Whole Blood 353 mg/dL (70-110)
[2024-05-13] MEDS: metFORMIN 500 MG TAB PO SCH (20:06)
[2024-05-13] MEDS ORDERED: DEXTROSE 50% SYRINGE 50 ML IVP PRN ×2 (20:12)
[2024-05-13] MEDS: INSULIN LISPRO (HumaLOG) 100 UNIT/ML 10 mL VL SQ SCH (21:30)
[2024-05-14] MEDS: HYDROcodone/APAP 5-325MG 1 EACH TAB PO PRN (00:12)
[2024-05-14 01:09] VITALS: RESP 16
[2024-05-14] MEDS: cloNIDine HCL 0.1 MG TAB PO STA (05:02)
[2024-05-14 05:54] LABS: Glucose,Whole Blood 261 mg/dL (70-110)
[2024-05-14] MEDS: INSULIN GLARGINE (LANTUS) 100 UNIT/ML SYR SQ SCH (06:31)
[2024-05-14 08:24] VITALS: TEMP 97.7
[2024-05-14] MEDS: ATORVASTATIN 20 MG TAB PO SCH (08:25)
[2024-05-14] MEDS: DULoxetine HCL 30 MG CAPSULE.DR PO SCH (08:26)
[2024-05-14] MEDS: CHOLECALCIFEROL 125 MCG (5000 IU) TABLET PO SCH (08:26)
[2024-05-14] MEDS: MAGNESIUM OXIDE 400 MG TAB PO SCH (08:26)
--- NOTE | 2024-05-14 09:26 | P.DS ---
Providers Date of admission: 05/13/24 10:29 Expected date of discharge: 05/14/24 Attending physician: Crispin Bliss DO Consults: 05/13/24 13:10 Consult Physician Routine Consulting Provider: Juan Luis Coppola Consult Reason/Comments: medical management Do you want consulting provider notified?: Yes Primary care physician: Juan Ingram Butler Hospital Course: This is a 64-year-old female with history of aortic occlusive disease with previous aortic stenting, disabling claudication Sabine classification 3 and right common femoral and superficial femoral artery occlusion who was scheduled for outpatient surgery. Today she is postop day #1 for right common femoral, SFA and profunda femoris artery endarterectomy and patch angioplasty. She has a Prevena dressing to the right groin. She has been up and ambulating in her room, she is voiding without difficulty. Tolerating her diet. She has been afebrile, vital signs have been stable. She does state when she was up ambulating she was having some burning type pain running down her leg from her groin to her knee. Improves with rest, likely nerve pain from inflammation. Pain has been well-managed. There is improvement in pain overall down her right lower extremity. Right lower extremity warm to the touch with good PT and DP Doppler signal. Exam General appearance: The patient is alert, oriented, appears in no acute distress. HET: Head is normocephalic and atraumatic. Pupils are equal and reactive. Neck: Supple. Heart: Regular. Lungs: Equal expansion, normal respiratory effort. Abdomen: Soft, nontender, nondistended. Extremities: Normal skin color and turgor. Right groin with Prevena dressing in place with good suction. Right lower extremity warm to the touch, multiphasic PT and DP Doppler signal. Previous left great toe amputation well-healed. Neurological: No focal deficits. Strength and sensation are grossly intact. Assessment 1. Right common femoral, SFA and profunda femoris artery endarterectomy and patch angioplasty with application of Prevena wound VAC 2. Disabling claudication, Rachell classification 3 3. 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 Diabetes mellitus 5. Previous smoker 6. Hypertension Plan 1. Encourage ambulation 2. Keep Prevena wound VAC in place for 6 days May remove and discard May 19, 2024. This was discussed with patient. 3. Continue home medications. Will increase gabapentin from 100 mg 3 times daily to 300 mg 3 times daily. 4. Discharge instructions reviewed with patient 5. Follow-up in [address] Bliss Plan for discharge this afternoon. The impression and plan of care has been dictated as directed. Dr. Bliss I performed a history and examination of this patient, discussed the same with the dictator. I agree with the dictator's note ,documented as a scribe. Any additional findings or plans will be noted. Procedures: Right common femoral, superficial femoral and profundus femoris artery endarterectomy and patch angioplasty Patient Condition at Discharge: Stable Plan - Discharge Summary Discharge Rx Participant: No New Discharge Prescriptions: New Gabapentin [Neurontin] 300 mg PO TID 30 Days #90 cap Continue Atorvastatin [Lipitor] 20 mg PO QAM INSULIN LISPRO (humaLOG) [humaLOG] 0 - 10 units SQ ACHS Clopidogrel [Plavix] 75 mg PO DAILY #30 tab Aspirin EC [Ecotrin Low Dose] 81 mg PO HS HYDROcodone/APAP 5-325MG [[place] 5-325] 1 tab PO DIRECTED PRN PRN Reason: Pain Magnesium (Unknown Dose) 400 mg PO QAM Famotidine 20 mg PO 1600 amLODIPine [Norvasc] 10 mg PO HS Losartan [Cozaar] 100 mg PO HS metFORMIN HCL [Glucophage] 1,000 mg PO BID DULoxetine HCL [Cymbalta] 30 mg PO QAM Cholecalciferol [Vitamin D3 (125 Mcg = 5000 Iu)] 125 mcg PO DAILY Insulin Glargine (Lantus) [Lantus Vial] 10 unit SQ QAM #4 each Discontinued Gabapentin [Neurontin] 100 mg PO TID Discharge Medication List Atorvastatin [Lipitor] 20 mg PO QAM 11/02/23 [History] DULoxetine HCL [Cymbalta] 30 mg PO QAM 11/02/23 [History] Famotidine 20 mg PO 1600 11/02/23 [History] INSULIN LISPRO (humaLOG) [humaLOG] 0 - 10 units SQ ACHS 11/02/23 [History] Losartan [Cozaar] 100 mg PO HS 11/02/23 [History] Magnesium (Unknown Dose) 400 mg PO QAM 11/02/23 [History] amLODIPine [Norvasc] 10 mg PO HS 09/19/24 [History] metFORMIN HCL [Glucophage] 1,000 mg PO BID 11/02/23 [History] Clopidogrel [Plavix] 75 mg PO DAILY #30 tab 11/09/23 [Rx] Aspirin EC [Ecotrin Low Dose] 81 mg PO HS 04/17/24 [History] Cholecalciferol [Vitamin D3 (125 Mcg = 5000 Iu)] 125 mcg PO DAILY 04/17/24 [Hi story] HYDROcodone/APAP 5-325MG [[place] 5-325] 1 tab PO DIRECTED PRN 05/08/24 [History] Gabapentin [Neurontin] 300 mg PO TID 30 Days #90 cap 05/14/24 [Rx] Insulin Glargine (Lantus) [Lantus Vial] 10 unit SQ QAM #4 each 05/14/24 [Rx] Follow up Appointment(s)/Referral(s): Crispin Bliss DO [STAFF PHYSICIAN] - 2 Weeks [facility], [NON-STAFF] - Patient Instructions/Handouts: Remote Superficial Femoral Artery Endarterectomy (DC) Activity/Diet/Wound Care/Special Instructions: No driving till cleared by surgeon Avoid heavy lifting greater than 10 lbs , pushing, pulling, straining, flights of stairs for until cleared by surgeon ok to sponge bathe while Prevena VAC in place. May then shower but no baths, pools, soaking in tubs until cleared by surgeon to avoid risk of infection. signs of infection ie: fever, rash, drainage from incision site, swelling contact doctor or return to ER immediately. Heavy bleeding from incision site apply firm direct pressure and return to ER. Do not attempt to drive self. low sodium/low fat diet Keep Prevena skin dressing in place until 05/19/2024 then may remove and throw away Discharge Disposition: HOME SELF-CARE
[2024-05-14] MEDS: FAMOTIDINE 20 MG TAB PO SCH (10:33)
[2024-05-14] MEDS: BENZOCAINE/MENTHOL LOZENG 1 EACH LOZENGE MUCOUS MEM PRN (10:34)
[2024-05-14 11:06] VITALS: BP 171/69; PULSE 97
[2024-05-14 11:31] LABS: Glucose,Whole Blood 230 mg/dL (70-110)
--- NOTE | 2024-05-14 12:54 | P.CONS ---
History of Present Illness - Reason for Consult Consult date: 05/14/24 - History of Present Illness History of present illness: 64-year-old female with past medical history significant for diabetes mellitus, hypertension, hyperlipidemia, history of peripheral artery disease with previous aortic stenting, disabling claudication, right common femoral and superficial femoral artery occlusion who was following vascular surgery as outpatient. Patient underwent a right common femoral SFA and profunda femoris artery endarterectomy and patch angioplasty on 05/13. Internal medicine consulted for medical management. Patient reported feeling better today. Right foot numbness and cold is better. Patient reported that she does have some burning sensation running down her groin to knee with ambulation, improving with rest. Patient denied any fever, chills, sore throat, productive cough, shortness of breath, chest pain, palpitation, nausea vomiting diarrhea constipation abdominal pain dysuria urgency frequency. 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 On aspirin, Plavix, statin. Diabetes mellitus Hypertension Previous smoker Continue home meds--Lantus 10 units daily, Humalog sliding scale, Lipitor, losartan, Norvasc, metformin. DVT prophylaxis Monitor vital signs and labs Labs and medication were reviewed. Continue same treatment. Further recommendations as per clinical course of the patient PHYSICAL EXAMINATION: GENERAL: The patient is A&O x3, NAD HEENT: EOMI, Sclerae anicteric, Moist Mucous membranes Neck: Supple, Non tender, No JVD PULMONARY: Equal breath souds B/L, No wheezing, No crackles. CARDIOVASCULAR: S1, S2 present. No murmurs, rubs, or gallops. ABDOMEN: Soft, nontender, nondistended, normoactive bowel sounds. No guarding or rebound tenderness. MUSCULOSKELETAL: No edema, No cyanosis. No clubbing. Normal ROM. Intact peripheral pulses. NEUROLOGICAL: CN 2-12 grossly intact. No FND REVIEW OF SYSTEMS: CONSTITUTIONAL: No fever, no malaise, no fatigue. HEENT: No recent visual problems or hearing problems. Denied any sore throat. CARDIOVASCULAR: No chest pain, orthopnea, PND, no palpitations, no syncope. PULMONARY: No shortness of breath, no cough, no hemoptysis. GASTROINTESTINAL: No diarrhea, no nausea, no vomiting, no abdominal pain. NEUROLOGICAL: No headaches, no weakness, no numbness. HEMATOLOGICAL: Denies any bleeding or petechiae. GENITOURINARY: Denies any burning micturition, frequency, or urgency. MUSCULOSKELETAL/RHEUMATOLOGICAL: Denies any joint pain, swelling, or any muscle pain. ENDOCRINE: Denies any polyuria or polydipsia. The rest of the 14-point review of systems is negative. Dictation was produced using [employer] software. please excuse any grammatical, word or spelling errors. Past Medical History Past Medical History: Diabetes Mellitus, Hyperlipidemia, Hypertension, Vascular Disorder Additional Past Medical History / Comment(s): PVD- rt leg pain. 11/02/23 bronchitis and nasal infection-resolved. Type II IDDM. R leg and R humerus fracture fall 2023 ( extracted blood from knee) both still painful being seen in May for it. Large gallstone-awaiting surgery consult. History of Any Multi-Drug Resistant Organisms: None Reported Additional Past Surgical History / Comment(s): L leg angioplasty 10/2023. Deviated septum repair. L great toe amputation April 2023. stent to lower aorta,, left lower leg balloon procedure. Past Anesthesia/Blood Transfusion Reactions: No Reported Reaction Additional Past Anesthesia/Blood Transfusion Reaction / Comm: No hx of blood transfusion. Smoking Status: Former smoker - Past Family History Sister(s) Family Medical History: Cancer Additional Family Medical History / Comment(s): Half sister w/ colon CA Medications and Allergies Home Medications Medication Instructions Recorded Confirmed Type Atorvastatin [Lipitor] 20 mg PO QAM 11/02/23 05/13/24 History DULoxetine HCL [Cymbalta] 30 mg PO QAM 11/02/23 05/13/24 History Famotidine 20 mg PO 1600 11/02/23 05/13/24 History INSULIN LISPRO (humaLOG) [humaLOG] 0 - 10 units SQ ACHS 11/02/23 05/13/24 History Losartan [Cozaar] 100 mg PO HS 11/02/23 05/13/24 History Magnesium (Unknown Dose) 400 mg PO QAM 11/02/23 05/13/24 History amLODIPine [Norvasc] 10 mg PO HS 11/02/23 05/13/24 History metFORMIN HCL [Glucophage] 1,000 mg PO BID 11/02/23 05/13/24 History Clopidogrel [Plavix] 75 mg PO DAILY #30 tab 11/09/23 05/13/24 Rx Aspirin EC [Ecotrin Low Dose] 81 mg PO HS 04/17/24 05/13/24 History Cholecalciferol [Vitamin D3 (125 125 mcg PO DAILY 04/17/24 05/13/24 History Mcg = 5000 Iu)] HYDROcodone/APAP 5-325MG [[place] 1 tab PO DIRECTED PRN 05/08/24 05/13/24 H istory 5-325] Gabapentin [Neurontin] 300 mg PO TID 30 Days #90 cap 05/14/24 Rx Insulin Glargine (Lantus) [Lantus 10 unit SQ QAM #4 each 05/14/24 Rx Vial] Allergies Allergy/AdvReac Type Severity Reaction Status Date / Time No Known Allergies Allergy Verified 05/13/24 10:41 Physical Exam Vitals: Vital Signs Temp Pulse Pulse Resp BP BP BP 05/14/24 11:05 97 16 171/69 05/14/24 08:25 71 16 05/14/24 08:23 97.7 F 71 16 159/67 05/14/24 04:40 97.9 F 68 75 16 146/70 05/14/24 02:00 75 16 05/13/24 23:57 97.6 F 75 16 155/76 05/13/24 20:00 75 16 05/13/24 19:50 98.1 F 89 18 131/70 05/13/24 18:27 80 18 131/72 05/13/24 17:15 94 18 147/67 05/13/24 16:45 87 18 145/65 05/13/24 16:30 74 18 141/64 05/13/24 16:15 81 16 139/67 05/13/24 16:00 75 18 152/70 05/13/24 15:45 84 17 151/66 05/13/24 15:30 71 16 156/72 05/13/24 15:15 66 17 134/63 152/63 05/13/24 15:00 69 16 129/62 149/54 05/13/24 14:45 66 15 128/60 146/54 05/13/24 14:31 65 17 134/63 146/52 05/13/24 14:15 68 16 136/63 156/53 05/13/24 14:00 64 17 153/59 05/13/24 13:45 63 16 131/60 142/77 05/13/24 13:31 68 15 152/65 163/59 05/13/24 13:16 98.3 F 77 14 173/61 179/76 Pulse Ox 05/14/24 11:05 100 05/14/24 08:25 05/14/24 08:23 97 05/14/24 04:40 100 05/14/24 02:00 05/13/24 23:57 98 05/13/24 20:00 05/13/24 19:50 97 05/13/24 18:27 97 05/13/24 17:15 95 05/13/24 16:45 96 05/13/24 16:30 100 05/13/24 16:15 100 05/13/24 16:00 96 05/13/24 15:45 96 05/13/24 15:30 100 05/13/24 15:15 100 05/13/24 15:00 05/13/24 14:45 05/13/24 14:31 6 L 05/13/24 14:15 95 05/13/24 14:00 98 05/13/24 13:45 98 05/13/24 13:31 99 05/13/24 13:16 97 Intake and Output 05/13/24 05/14/24 05/14/24 22:59 06:59 14:59 Intake Total 240 Balance 240 Intake: Oral 240 Other: Voiding Method Toilet Toilet Toilet # Voids 1 1 1 Weight 57 kg Results Labs: Abnormal Lab Results - Last 24 Hours (Table) 05/13/24 05/13/24 05/14/24 Range/Units 14:03 20:00 05:51 POC Glucose (mg/dL) 182 H 353 H 261 H (70-110) mg/dL Hemoglobin A1c (<=6.0) % 05/14/24 05/14/24 Range/Units 06:21 11:30 POC Glucose (mg/dL) 230 H (70-110) mg/dL Hemoglobin A1c 7.0 H (<=6.0) %
--- NOTE | 2024-05-14 15:55 | P.ANPRN ---
Procedure Note - Anesthesia - Invasive Line Right Arterial Line Time Out Performed: Yes Date of Procedure: 05/13/24 Time of Procedure: 07:15 Location of Patient: PreOp Preparation: Sterile Prep, Sterile Dressing Arterial Line Location: Briachial Ultrasound Used: No Purpose - Visualization and Identification of Vasculature: No Image Stored and Saved: No Narrative: Invasive line placement per sterile protocol utilized.
[2024-05-14] MEDS ORDERED: GABAPENTIN 300 MG CAP PO SCH (16:00)
== END 2024-05-14 13:58 | disposition home health service (06) | DRG 181 ==
LOC: 2ORMAIN 10:29 → 3SCARD 17:10
PROVIDERS: ADMIT Surgery; ATTEND Surgery
PROC: 04UK0KZ Supplement Right Femoral Artery with Nonautologous Tissue Substitute, Open Approach (ICD-10-PCS; principal; 2024-05-13 12:25)
PROC: 04CK0ZZ Extirpation of Matter from Right Femoral Artery, Open Approach (ICD-10-PCS; principal; 2024-05-13 12:25)
DX: E11.51 Type 2 diabetes mellitus with diabetic peripheral angiopathy without gangrene (principal); I70.223 Atherosclerosis of native arteries of extremities with rest pain, bilateral legs; I10 Essential (primary) hypertension; E78.5 Hyperlipidemia, unspecified; K80.20 Calculus of gallbladder without cholecystitis without obstruction; Z79.4 Long term (current) use of insulin; Z79.84 Long term (current) use of oral hypoglycemic drugs; Z79.02 Long term (current) use of antithrombotics/antiplatelets; Z79.899 Other long term (current) drug therapy; Z87.891 Personal history of nicotine dependence; Z89.412 Acquired absence of left great toe; Z87.81 Personal history of (healed) traumatic fracture
CPT/HCPCS: 83036; 86850; 86900; 86901; 88304; 88311

== ENCOUNTER 2024-05-23 09:12 | Emergency (ER) | payer OTHER ==
[2024-05-23 09:21] VITALS: TEMP 97.7
--- NOTE | 2024-05-23 09:59 | ED ---
General Adult HPI - General Chief complaint: Skin/Abscess/Foreign Body Stated complaint: post op comp Time Seen by Provider: 05/23/24 09:35 Source: patient, RN notes reviewed, old records reviewed Mode of arrival: ambulatory Limitations: no limitations - History of Present Illness Initial comments: 64-year-old female who is 10 days postop right femoral endarterectomy with Dr. Bliss. Patient had been doing well postoperatively over the past 24 to 48 hours she developed swelling in the right groin with drainage which was dark red in color. Patient denied any pulsatile sensation. She states her leg has been feeling quite good after the procedure. Denies pain. Denies fever. - Related Data Home Medications Medication Instructions Recorded Confirmed Atorvastatin [Lipitor] 20 mg PO QAM 11/02/23 05/13/24 DULoxetine HCL [Cymbalta] 30 mg PO QAM 11/02/23 05/13/24 Famotidine 20 mg PO 1600 11/02/23 05/13/24 INSULIN LISPRO (humaLOG) [humaLOG] 0 - 10 units SQ ACHS 11/02/23 05/13/24 Losartan [Cozaar] 100 mg PO HS 11/02/23 05/13/24 Magnesium (Unknown Dose) 400 mg PO QAM 11/02/23 05/13/24 amLODIPine [Norvasc] 10 mg PO HS 11/02/23 05/13/24 metFORMIN HCL [Glucophage] 1,000 mg PO BID 11/02/23 05/13/24 Aspirin EC [Ecotrin Low Dose] 81 mg PO HS 04/17/24 05/13/24 Cholecalciferol [Vitamin D3 (125 125 mcg PO DAILY 04/17/24 05/13/24 Mcg = 5000 Iu)] HYDROcodone/APAP 5-325MG [[place] 1 tab PO DIRECTED PRN 05/08/24 05/13/24 5-325] Previous Rx's Medication Instructions Recorded Clopidogrel [Plavix] 75 mg PO DAILY #30 tab 11/09/23 Gabapentin [Neurontin] 300 mg PO TID 30 Days #90 cap 05/14/24 Insulin Glargine (Lantus) [Lantus 10 unit SQ QAM #4 each 05/14/24 Vial] Allergies Allergy/AdvReac Type Severity Reaction Status Date / Time No Known Allergies Allergy Verified 05/23/24 09:21 Review of Systems ROS Statement: Those systems with pertinent positive or pertinent negative responses have been documented in the HPI. ROS Other: All systems not noted in ROS Statement are negative. Past Medical History Past Medical History: Diabetes Mellitus, Hyperlipidemia, Hypertension, Vascular Disorder Additional Past Medical History / Comment(s): PVD- rt leg pain. 11/02/23 bronchitis and nasal infection-resolved. Type II IDDM. R leg and R humerus fracture fall 2023 ( extracted blood from knee) both still painful being seen in May for it. Large gallstone-awaiting surgery consult. History of Any Multi-Drug Resistant Organisms: None Reported Additional Past Surgical History / Comment(s): L leg angioplasty 10/2023. Deviated septum repair. L great toe amputation April 2023. stent to lower aorta,left lower leg balloon procedure. Past Anesthesia/Blood Transfusion Reactions: No Reported Reaction Additional Past Anesthesia/Blood Transfusion Reaction / Comment(s): No hx of blood transfusion. Past Psychological History: Anxiety, Depression Smoking Status: Former smoker - Past Family History Sister(s) Family Medical History: Cancer Additional Family Medical History / Comment(s): Half sister w/ colon CA General Exam Limitations: no limitations General appearance: alert, in no apparent distress Head exam: Present: atraumatic, normocephalic Eye exam: Present: normal appearance, PERRL ENT exam: Present: normal exam Neck exam: Present: normal inspection. Absent: tenderness, meningismus Respiratory exam: Present: normal lung sounds bilaterally. Absent: respiratory distress, wheezes Cardiovascular Exam: Present: regular rate, normal rhythm GI/Abdominal exam: Present: soft. Absent: distended, tenderness, guarding Extremities exam: Present: other (Right groin, nonpulsatile area of swelling approximately 6 cm x 3 cm. There is no active hemorrhage. No erythema, the area is soft nonindurated.) Neurological exam: Present: alert, oriented X3 Psychiatric exam: Present: normal affect, normal mood Skin exam: Present: warm Course Vital Signs 05/23/24 09:16 Temperature 97.7 F Pulse Rate 101 H Respiratory 22 Rate Blood Pressure 148/80 O2 Sat by Pulse 99 Oximetry Medical Decision Making - Medical Decision Making Was pt. sent in by a medical professional or institution (, PA, REDUCTION FURNACE OPERATOR HELPER, urgent care, hospital, or assisted...) When possible be specific @ -No Did you speak to anyone other than the patient for history (EMS, parent, family, police, friend...)? What history was obtained from this source @ -No Did you review nursing and triage notes (agree or disagree)? Why? @ -I reviewed and agree with nursing and triage notes Were old charts reviewed (outside hosp., previous admission, EMS record, old EKG, old radiological studies, urgent care reports/EKG's, assisted records)? Report findings @ -No old charts were reviewed Differential Diagnosis abscess, hematoma, seroma, pseudoaneurysm EKG interpreted by me (3pts min.). @ -As above X-rays interpreted by me (1pt min.). @ -None done CT interpreted by me (1pt min.). @ -None done U/S interpreted by me (1pt. min.). @Soft tissue ultrasound of the groin consistent with hematoma, no pseudoaneurysm seen on ultrasound specific to pseudoaneurysm. What testing was considered but not performed or refused? (CT, X-rays, U/S, labs)? Why? @ -None What meds were considered but not given or refused? Why? @ -None Did you discuss the management of the patient with other professionals (professionals i.e. , PA, REDUCTION FURNACE OPERATOR HELPER, lab, RT, psych nurse, elementary school social worker, organizational development specialist, teacher, human resources officer, embedded case manager)? Give summary @Case discussed with Dr. Bliss Was smoking cessation discussed for >3mins.? @ -No Was critical care preformed (if so, how long)? @ -No Were there social determinants of health that impacted care today? How? (Homelessness, low income, unemployed, alcoholism, drug addiction, transportation, low edu. Level, literacy, decrease access to med. care, shelter, rehab)? @ -No Was there de-escalation of care discussed even if they declined (Discuss DNR or withdrawal of care, Hospice)? DNR status @ -No What co-morbidities impacted this encounter? (DM, HTN, Smoking, COPD, CAD, Cancer, CVA, ARF, Chemo, Hep., AIDS, mental health diagnosis, sleep apnea, morbid obesity)? @ -Peripheral vascular disease status post femoral endarterectomy Was patient admitted / discharged? Hospital course, mention meds given and route, prescriptions, significant lab abnormalities, going to OR and other pertinent info. @ -64-year-old female with swelling in the right groin postop femoral endarterectomy on May 13. Patient afebrile, well-appearing, no leukocytosis, hemoglobin 9.9. Ultrasound both for pseudoaneurysm and soft tissue ultrasound is performed, findings consistent with hematoma. Patient will follow closely with her vascular surgeon. Undiagnosed new problem with uncertain prognosis? @ -No Drug Therapy requiring intensive monitoring for toxicity (Heparin, Nitro, Insulin, Cardizem)? @ -No Were any procedures done? @ -No Diagnosis/symptom? @ -Hematoma Acute, or Chronic, or Acute on Chronic? @ -[Acute Uncomplicated (without systemic symptoms) or Complicated (systemic symptoms)? @ -Default Side effects of treatment? @ -No Exacerbation, Progression, or Severe Exacerbation? @ -No Poses a threat to life or bodily function? How? (Chest pain, [place], [place], pneumonia, PE, COPD, DKA, ARF, appy, cholecystitis, CVA, Diverticulitis, Homicidal, Suicidal, threat to staff... and all critical care pts) @ -No - Lab Data Result diagrams: 05/23/24 10:05 05/23/24 10:05 Lab Results 05/23/24 05/23/24 Range/Units 10:05 10:05 WBC 7.60 (4.50-10.00) 10*3/uL RBC 3.31 L (4.10-5.20) 10*6/uL Hgb 9.9 L (12.0-15.0) g/dL Hct 28.7 L (37.2-46.3) % MCV 86.7 (80.0-97.0) fL MCH 29.9 (27.0-32.0) pg MCHC 34.5 (32.0-37.0) g/dL Plt Count 406 (140-440) 10*3/uL MPV 8.7 L (9.5-12.2) fL Immature Gran % (Auto) 0.4 % Neutrophils % 58.9 % Lymphocytes % 21.1 % Monocytes % 13.4 % Eosinophils % 5.0 % Basophils % 1.2 % Immature Gran # 0.03 (0.00-0.04) 10*3/uL Neutrophils # 4.48 (1.80-7.70) 10*3/uL Lymphocytes # 1.60 (0.90-5.00) 10*3/uL Monocytes # 1.02 H (0.20-1.00) 10*3/uL Eosinophils # 0.38 H (0.04-0.35) 10*3/uL Basophils # 0.09 (0.00-0.10) 10*3/uL Sodium 131 L (137-145) mmol/L Potassium 4.5 (3.5-5.1) mmol/L Chloride 97 L (98-107) mmol/L Carbon Dioxide 30 (22-30) mmol/L Anion Gap 4 mmol/L BUN 22 H (7-17) mg/dL Creatinine 0.58 (0.52-1.04) mg/dL Est GFR (CKD-EPI)AfAm >90 (>60 ml/min/1.73 sqM) Est GFR (CKD-EPI)NonAf >90 (>60 ml/min/1.73 sqM) Glucose 186 H (74-99) mg/dL Calcium 9.4 (8.4-10.2) mg/dL Total Bilirubin 0.3 (0.2-1.3) mg/dL AST 19 (14-36) U/L ALT 14 (4-34) U/L Alkaline Phosphatase 93 (38-126) U/L Total Protein 5.9 L (6.3-8.2) g/dL Albumin 3.2 L (3.5-5.0) g/dL Disposition Clinical Impression: Hematoma Disposition: HOME SELF-CARE Condition: Fair Instructions (If sedation given, give patient instructions): Hematoma (ED) Is patient prescribed a controlled substance at d/c from ED?: No Referrals: Juan Mandujano [Primary Care Provider] - 1-2 days Crispin Bliss DO [STAFF PHYSICIAN] - 1-2 days Time of Disposition: 11:16
[2024-05-23 10:15] LABS: Basophils # (A) 0.09 10*3/uL (0.00-0.10); Basophils % (A) 1.2 %; Eosinophils # (A) 0.38 10*3/uL (0.04-0.35); HCT 28.7 % (37.2-46.3); HGB 9.9 g/dL (12.0-15.0); Lymphocytes % (A) 21.1 %; MCH 29.9 pg (27.0-32.0); MCHC 34.5 g/dL (32.0-37.0); MCV 86.7 fL (80.0-97.0); Mean Platelet Volume 8.7 fL (9.5-12.2); Monocytes # (A) 1.02 10*3/uL (0.20-1.00); Monocytes % (A) 13.4 %; Neutrophils # (A) 4.48 10*3/uL (1.80-7.70); Neutrophils % (A) 58.9 %; Platelet Count 406 10*3/uL (140-440); RBC 3.31 10*6/uL (4.10-5.20); RDW 13.4 % (11.5-14.5)
[2024-05-23 10:31] LABS: ALT 14 U/L (4-34); AST 19 U/L (14-36); African American GFR (CKD) >90 (>60 ml/min/1.73 sqM); Albumin 3.2 g/dL (3.5-5.0); Alkaline Phosphatase 93 U/L (38-126); Anion Gap 4 mmol/L; Blood Urea Nitrogen 22 mg/dL (7-17); Calcium 9.4 mg/dL (8.4-10.2); Carbon Dioxide 30 mmol/L (22-30); Chloride 97 mmol/L (98-107); Glucose 186 mg/dL (74-99); Non-African American GFR(CKD) >90 (>60 ml/min/1.73 sqM); Potassium 4.5 mmol/L (3.5-5.1); Sodium 131 mmol/L (137-145); Total Bilirubin 0.3 mg/dL (0.2-1.3); Total Protein 5.9 g/dL (6.3-8.2)
--- NOTE | 2024-05-23 11:01 | US ---
EXAMINATION TYPE: US lower ext pseudo artery RT DATE OF EXAM: 05/23/2024 COMPARISON: NONE CLINICAL INDICATION: Female, 64 years old with history of femoral endarterectomy; Right groin lump po st op x 10 days pain. TECHNIQUE:: Grayscale, color Doppler and spectral Doppler imaging performed of the groin, post cardia c catheter to assess for pseudoaneurysm. FINDINGS: SIDE PERFORMED: Right Color and Waveform Doppler performed to assess for the presence of pseudoaneurysm; Is there ultrasound evidence of a pseudoaneurysm: no Is there evidence of AV shunting: no Is there a fluid collection present: no Complex area seen at lump superior to the vessels. Measured on extremity non vascular study. No pseud oaneurysm visualized. IMPRESSION: As above. [facility], , 05/23/2024 10:59 AM
--- NOTE | 2024-05-23 11:01 | US ---
EXAMINATION TYPE: US extremity nonvasc mass RT DATE OF EXAM: 05/23/2024 COMPARISON: NONE CLINICAL INDICATION: Female, 64 years old with history of femoral endarterectomy with swelling; Right groin lump post op x 10 days ago pain. TECHNIQUE: FINDINGS: Complex area visualized at lump measuring 5.6 x 1.6 x 3.2 cm. IMPRESSION: Fairly moderate size nonsimple thin-walled fluid collection likely reflecting subcutaneo us hematoma in the right groin. [facility], , 05/23/2024 10:58 AM
[2024-05-23 11:38] VITALS: BP 129/74; PULSE 79; RESP 18
== END 2024-05-23 11:38 | disposition home or self-care (01) ==
LOC: EC 09:12
DX: L76.32 Postprocedural hematoma of skin and subcutaneous tissue following other procedure (principal); Z98.62 Peripheral vascular angioplasty status; Z87.891 Personal history of nicotine dependence
CPT/HCPCS: 36415; 80053; 85025; 93975; 99283

== ENCOUNTER → 2024-06-07 | Outpatient (CLI) | payer OTHER ==
[2024-06-07 14:49] LABS: African American GFR (CKD) >90 (>60 ml/min/1.73 sqM); Blood Urea Nitrogen 22 mg/dL (7-17); Non-African American GFR(CKD) >90 (>60 ml/min/1.73 sqM)
--- NOTE | 2024-06-11 07:26 | CT ---
EXAMINATION TYPE: CT angio abd aorta w/Runoff DATE OF EXAM: 06/07/2024 4:32 PM COMPARISON: None. CLINICAL INDICATION: Female, 64 years old with history of I72.4 ANEURYSM OF ARTERY OF LOWER EXTREMITY , aneurysm of right lower extremity, TECHNIQUE: Axial imaging was performed with sagittal coronal reformats. 3D reconstruction performed o n a separate workstation. CONTRAST: CTA thoracic and abdominal aorta with 3-D reconstruction is performed and without and with IV Contras t, patient injected with 100 ml mL of Isovue 370. Contrast CTA of the abdominal aorta with runoff of the lower extremity arterial system was performed from the lung bases through the ankles and feet. 3-D reconstruction imaging obtained at a separate wo rkstation. CT DLP: 1973.5 mGycm, Automated exposure control for dose reduction was used. FINDINGS: ABDOMINAL AORTA: Atheromatous changes noted of the abdominal aorta without evidence for dissection or occlusion. Mild atheromatous changes at the origin of the renal arteries. SMA and celiac are within normal limits. Iliac vessels: Greater than 50% stenosis distal right common iliac artery near its bifurcation. Near complete occlusion right external iliac artery with recanalization distally. Mild atheromatous change left common iliac artery and left external iliac artery however no stenosis greater than 50% identif ied. Femoral arteries: Proximal right femoral artery demonstrates multifocal high-grade stenosis. There is multifocal high-grade stenosis involving the right superficial femoral artery at its proximal and mi d portions with a longer segment seen at its midportion. There is reconstitution distally. The left s uperficial femoral artery and left femoral arteries are free of stenosis greater than 50%. Popliteal arteries: Both popliteal arteries are patent without evidence for hemodynamically significa nt stenosis. Below the knee arteries: Trifurcation is patent bilaterally. Peroneal, anterior and posterior tibial arteries demonstrate mild calcific disease without definite evidence for hemodynamically significant stenosis. Limited runoff of the ankles and feet. LIVER/GB-cholelithiasis. Hepatic steatosis. PANCREAS- No significant abnormality is seen. SPLEEN- No significant abnormality is seen. ADRENALS- No significant abnormality is seen. KIDNEYS/BLADDER- No significant abnormality is seen. BOWEL- No Significant abnormality GENITAL ORGANS: No gross abnormality seen. LYMPH NODES- No greater than 1cm abdominal or pelvic lymph nodes are appreciated. OSSEOUS STRUCTURES- No significant abnormality is seen. OTHER- No significant abnormality is seen. IMPRESSION: 1. Greater than 50% stenosis distal right common iliac artery near its bifurcation. Near complete occ lusion right external iliac artery with recanalization distally. 2.Proximal right femoral artery demonstrates multifocal high-grade stenosis. There is multifocal high -grade stenosis involving the right superficial femoral artery at its proximal and mid portions with a longer segment seen at its midportion. There is reconstitution distally. [facility], , 06/11/2024 7:24 AM
== END | disposition home or self-care (01) ==
LOC: RADCTMAIN 14:14
PROVIDERS: ATTEND Surgery
DX: I72.4 Aneurysm of artery of lower extremity (principal); I65.21 Occlusion and stenosis of right carotid artery; E10.9 Type 1 diabetes mellitus without complications
CPT/HCPCS: 82565; 84520; 75635; 36415; Q9967

== ENCOUNTER 2024-06-28 08:29 | Day surgery (SDC) | payer OTHER ==
[2024-06-25 16:29] VITALS: BMI 21.6
[~2024-06-28 08:29] MED LIST changes: +ALPRAZolam 0.25 MG TAB PO PRN; +ALPRAZolam 0.5 MG TAB PO PRN; -DEXAMETHASONE SOD PHOSPHATE 4 MG/ML 1 ML VIAL IV ONE; +HEPARIN SODIUM,PORCINE (1 ML) 2,500 UNIT in SODIUM CHLORIDE 0.9% 250 ML IRRIGATION PRN; +HEPARIN SODIUM,PORCINE 10,000 UNIT in SODIUM CHLORIDE 0.9% 1,000 ML IRRIGATION PRN; -ONDANSETRON 4 MG/2 ML VIAL IVP ONE; -SCOPOLAMINE 1 MG/72 HR PATCH TRANSDERM ONE; +ZOLPIDEM 5 MG TAB PO PRN
[2024-06-28] MEDS: EMPTY BAG 1 BAG with SODIUM CHLORIDE 0.9% 1,000 ML IV SCH (08:56)
[2024-06-28 09:00] LABS: Glucose,Whole Blood 172 mg/dL (70-110)
[2024-06-28] MEDS: IV FLUID CONTINUATION 1,000 ML IV ONE (09:02)
[2024-06-28 09:05] LABS: Basophils # (A) 0.05 10*3/uL (0.00-0.10); Basophils % (A) 0.8 %; Eosinophils # (A) 0.26 10*3/uL (0.04-0.35); Eosinophils % (A) 4.1 %; Lymphocytes # (A) 1.08 10*3/uL (0.90-5.00); Lymphocytes % (A) 17.1 %; MCH 28.7 pg (27.0-32.0); MCHC 33.3 g/dL (32.0-37.0); MCV 86.2 fL (80.0-97.0); Mean Platelet Volume 8.2 fL (9.5-12.2); Monocytes # (A) 0.76 10*3/uL (0.20-1.00); Neutrophils # (A) 4.15 10*3/uL (1.80-7.70); Neutrophils % (A) 65.8 %; Platelet Count 367 10*3/uL (140-440); RBC 3.48 10*6/uL (4.10-5.20); RDW 12.2 % (11.5-14.5); WBC 6.31 10*3/uL (4.50-10.00)
[2024-06-28 09:19] LABS: African American GFR (CKD) >90 (>60 ml/min/1.73 sqM); Anion Gap 5 mmol/L; Blood Urea Nitrogen 19 mg/dL (7-17); Calcium 9.2 mg/dL (8.4-10.2); Carbon Dioxide 28 mmol/L (22-30); Chloride 98 mmol/L (98-107); Glucose 168 mg/dL (74-99); Non-African American GFR(CKD) >90 (>60 ml/min/1.73 sqM); Potassium 4.5 mmol/L (3.5-5.1); Sodium 131 mmol/L (137-145)
[2024-06-28] MEDS: LIDOCAINE 1% INJ 10MG/ML (30 ML VIAL-PF) SQ ONE (10:10)
[2024-06-28] MEDS: MIDAZOLAM 2 MG/2 ML VIAL IVP ONE (10:12)
[2024-06-28] MEDS: fentaNYL (PF) 50 MCG/1 ML VIAL IVP ONE (10:16)
[2024-06-28] MEDS: HEPARIN SODIUM 1,000 UN/ML (10ML VL) IVP ONE (10:22)
[2024-06-28] MEDS: IOPAMIDOL-300 100ML BTL INJ ONE (10:48)
--- NOTE | 2024-06-28 11:09 | P.OP ---
Date of Procedure: 06/28/24 Preoperative Diagnosis: Disabling claudication right lower extremity Gordon classification 3 Right external iliac artery occlusion Postoperative Diagnosis: Disabling claudication Gordon classification 3 Right external iliac artery occlusion Right superficial femoral artery occlusion with reconstitution at the mid thigh Procedure(s) Performed: Ultrasound-guided left common femoral artery access Aortogram with right lower extremity selective angiogram second-order Percutaneous transluminal balloon angioplasty of the external iliac artery Percutaneous transluminal covered 5 x 100 mm Viabahn stent placement at the external iliac artery Percutaneous closure of the left common femoral artery access with Vascade device Conscious sedation x 48 minutes Anesthesia: local Surgeon: Crispin Bliss Estimated Blood Loss (ml): 5 Pathology: none sent Condition: stable Disposition: PACU Indications for Procedure: 64-year-old female with longstanding history of peripheral arterial disease, claudication and previous aortic stenting for aortic occlusive disease and recent right common femoral artery endarterectomy and patch angioplasty presents back to the hospital secondary to worsening claudication and pain in her right leg. She was found to have on CT scan and an arterial Doppler significant change in her ABIs and blood flow to the right lower extremity. On CT scan it was noted that her external iliac artery appeared to be occluded with no flow extending into the SFA but reconstitution noted at the femoral patch and profunda. She presents today for right lower extremity angiogram and possible stenting of her external iliac artery. Operative Findings: External iliac artery on the right is occluded just after the bifurcation extending into the common femoral patch Description of Procedure: After written and informed consent was obtained the patient all risks, benefits and complications were described patient is brought to the Hat [facility] and laid supine position. The area of the left groin was prepped and draped in usual sterile fashion. Timeout was performed in normal fashion. Utilizing ultrasound the left femoral artery was accessed and a 6 F sheath was placed. 035 Glidewire was then placed into the aorta followed by an RBI catheter and the right iliac was accessed in an up and over fashion. Selective angiogram was then obtained of the right lower extremity demonstrating occlusion of the external iliac artery just after the bifurcation with reconstitution of the common femoral. SFA also demonstrates occlusion on the right with reconstitution of the mid thigh. Patient was given heparin and followed with ACTs. An 035 Glidewire advantage was then placed across the lesion into the common femoral patch. Catheter was placed across the lesion into the patch and angiogram was obtained demonstrating good intraluminal access. Balloon angioplasty was then performed across the lesion with a 5 x 100 mm EverCross balloon. Due to the anatomy and the severe lesion crossing the groin it was determined to place a covered Viabahn stent. 135 Glidewire was then exchanged for an 018 Glidewire advantage and Viabahn stent 5 x 100 mm was deployed across the lesion extending from the proximal aspect of the patch to the takeoff of the external iliac artery. Post stent balloon angioplasty was performed with a 5 x 100 mm balloon and final angiogram was obtained demonstrating brisk flow through the external iliac artery to the common femoral patch and profunda with brisk flow through collaterals to the SFA and two-vessel runoff to the ankle. Attempt at crossing into the SFA was performed without success due to the flush occlusion. All guidewires and catheters were then removed the sheath was removed and replaced with a short 6 F sheath and utilizing a Vascade closure device the access was closed. Pressure was placed for hemostasis. The patient tolerated the procedure well and had doppler signals at the DP and PT bilaterally and was sent to recovery.
[2024-06-28] MEDS: HYDROcodone/APAP 5-325MG 1 EACH TAB PO PRN (11:49)
[2024-06-28] MEDS ORDERED: DEXTROSE 50% SYRINGE 50 ML IVP PRN ×2 (12:59)
--- NOTE | 2024-06-28 14:48 | IR ---
EXAMINATION TYPE: IR bellhop captain iliac DATE OF EXAM: 06/28/2024 FLUOROSCOPY PVD, 10.4MIN FLUORO Vascular surgery catheter procedure. 863 images are submitted. [facility], , 06/28/2024 2:46 PM
[2024-06-28] MEDS: FAMOTIDINE 20 MG TAB PO SCH (15:24)
[2024-06-28] MEDS: GABAPENTIN 300 MG CAP PO SCH (15:24)
[2024-06-28] MEDS ORDERED: NON FORMULARY DRUG (Insulin Lispro (Humalog) 100 UNIT/1 ML Ml) SQ SCH (17:30)
[2024-06-28 17:37] LABS: Glucose,Whole Blood 261 mg/dL (70-110)
[2024-06-28] MEDS: INSULIN LISPRO (HumaLOG) 100 UNIT/ML 10 mL VL SQ SCH (18:18)
[2024-06-28 20:04] LABS: Glucose,Whole Blood 337 mg/dL (70-110)
[2024-06-28 20:16] VITALS: RESP 18
[2024-06-28] MEDS: LOSARTAN 50 MG TAB PO SCH (20:30)
[2024-06-28] MEDS: ASPIRIN 81 MG PO SCH (20:30)
[2024-06-28] MEDS: amLODIPine 10 MG TAB PO SCH (20:31)
--- NOTE | 2024-06-29 02:57 | HP ---
HISTORY AND PHYSICAL CHIEF COMPLAINT: Right groin hematoma. HISTORY OF PRESENT ILLNESS: This 64-year-old woman with a past medical history of diabetes, hypertension, hyperlipidemia, peripheral vascular disease, underwent aortogram as well as well balloon angioplasty of the external iliac artery and stent placement of the external iliac artery by Dr. Bliss. Hematoma of the groin was suspected and the patient admitted for overnight observation at this time. There is no history of fever, rigors, chills at this time. PAST MEDICAL HISTORY: Diabetes, hypertension, hyperlipidemia. Rest of the chart is also reviewed. HOME MEDICATIONS: Reviewed, include Plavix. Dose and rest of medications reviewed. ALLERGIES: None known. FAMILY HISTORY: History of cancer. SOCIAL HISTORY: Previous history of smoking REVIEW OF SYSTEMS: A 14-point review of systems is negative except as mentioned earlier. PHYSICAL EXAMINATION: VITAL SIGNS: Pulse is 75, blood pressure 130/68, respirations 17. HEENT: Conjunctivae normal. NECK: No jugular venous distention. CARDIOVASCULAR: S1, S2 muffled. ABDOMEN: Soft. Minimal hematoma and tenderness in the right groin present. LABORATORY DATA: Hemoglobin 10. ASSESSMENT: 1. Status post aortogram and as well as balloon angioplasty and stent placement of the external iliac artery. 2. Groin hematoma. 3. Anemia. 4. Hyponatremia. 5. Diabetes mellitus, . 6. Hypertension. 7. Hyperlipidemia. RECOMMENDATIONS: This 64-year-old woman presented after surgery. At this time, we will closely monitor, otherwise we will recommend to continue the medications and monitor blood pressure closely. Repeat labs in the morning. Closely follow with Vascular Surgery. Further recommendations to follow. Home medications ordered. MMODL / IJN: [id number] / [facility]
[2024-06-29 06:00] LABS: Glucose,Whole Blood 200 mg/dL (70-110)
[2024-06-29 08:50] VITALS: BP 109/57; PULSE 75; TEMP 98.3
[2024-06-29 10:04] LABS: Basophils # (A) 0.03 X 10*3/uL (0.00-0.10); Basophils % (A) 0.5 %; Eosinophils % (A) 5.3 %; HCT 24.4 % (37.2-46.3); HGB 7.9 g/dL (12.0-15.0); Lymphocytes # (A) 1.15 X 10*3/uL (0.90-5.00); Lymphocytes % (A) 20.5 %; MCHC 32.4 g/dL (32.0-37.0); MCV 86.5 FL (80.0-97.0); Mean Platelet Volume 8.7 FL (9.5-12.2); Monocytes # (A) 0.74 X 10*3/uL (0.20-1.00); Monocytes % (A) 13.2 %; NRBC Per 100 WBC 0 X 10*3/uL (0.00-0.01); Neutrophils # (A) 3.38 X 10*3/uL (1.80-7.70); Neutrophils % (A) 60.1 %; Platelet Count 324 X 10*3/uL (140-440); RBC 2.82 X 10*6/uL (4.10-5.20); RDW 12.5 % (11.5-14.5); WBC 5.62 X 10*3/uL (4.50-10.00)
[2024-06-29] MEDS: INSULIN GLARGINE (LANTUS) 100 UNIT/ML SYR SQ SCH (10:04)
[2024-06-29] MEDS: CLOPIDOGREL 75 MG TAB PO SCH (10:05)
[2024-06-29] MEDS: DULoxetine HCL 30 MG CAPSULE.DR PO SCH (10:05)
[2024-06-29] MEDS: ATORVASTATIN 20 MG TAB PO SCH (10:06)
[2024-06-29] MEDS: CHOLECALCIFEROL 125 MCG (5000 IU) TABLET PO SCH (10:06)
[2024-06-29 11:08] LABS: BUN/Creat Ratio 32.83 Ratio (12.00-20.00); Blood Urea Nitrogen 19.7 mg/dL (9.0-27.0); Calcium 8.2 mg/dL (8.7-10.3); Carbon Dioxide 25.3 mmol/L (21.6-31.8); Chloride 94 mmol/L (96-109); Glucose 187 mg/dL (70-110); Potassium 4.8 mmol/L (3.5-5.5); Sodium 126 mmol/L (135-145)
[2024-06-29 12:24] LABS: Glucose,Whole Blood 281 mg/dL (70-110)
--- NOTE | 2024-06-30 02:39 | DS ---
DISCHARGE SUMMARY FINAL DIAGNOSES: 1. Status post aortogram as well as balloon angioplasty and stent placement of the external iliac artery on the right. 2. Groin hematoma, right improved. 3. Anemia. 4. Hyponatremia. 5. Diabetes type 2. 6. Hypertension. 7. Hyperlipidemia. DISCHARGE DISPOSITION: The patient is being discharged in stable condition and guarded prognosis. HISTORY OF PRESENT ILLNESS: This is a 64-year-old woman, who had a procedure yesterday, where Dr. Bliss was admitted for evaluation of the groin hematoma after an angioplasty procedure as detailed. The patient is stable. Hemoglobin is 7.9. The patient was discharged with further plans to continue the home medications and follow up CBC, BMP with primary physician, Dr. Mandujano and Dr. Bliss has recommended to report back to the hospital if it is symptomatic or any increase in hematoma noted. Once again, the patient will be discharged stable and guarded prognosis. There is very minimal swelling in the right groin, but with no discoloration. MMODL / IJN: [id number] /
== END 2024-06-29 15:24 | disposition home or self-care (01) ==
LOC: CATHCVL 08:29 → 6NMEDSUR 12:50 → CATHCVL 06-29 15:24
PROVIDERS: ATTEND Hospitalist
DX: S30.1XXA Contusion of abdominal wall, initial encounter (principal); I74.5 Embolism and thrombosis of iliac artery; I70.203 Unspecified atherosclerosis of native arteries of extremities, bilateral legs; E11.51 Type 2 diabetes mellitus with diabetic peripheral angiopathy without gangrene; E78.5 Hyperlipidemia, unspecified; E87.1 Hypo-osmolality and hyponatremia; I10 Essential (primary) hypertension; D64.9 Anemia, unspecified; Z87.891 Personal history of nicotine dependence; Z95.5 Presence of coronary angioplasty implant and graft; X58.XXXA Exposure to other specified factors, initial encounter
CPT/HCPCS: 37221; 75710; 76937; 80048 ×2; 85025 ×2; J2250; J2003; J1644; Q9967; J3010